=== PATIENT | female | born 1990 | race Caucasian/White ===

== ENCOUNTER 2018-05-28 11:00 | Emergency (ER) | payer MEDICAID ==
[2018-05-28 11:03] VITALS: BMI 29.2
--- NOTE | 2018-05-28 11:40 | ED PDOC ---
HPI: Female Pain Time Seen by Provider: 05/28/18 11:06 Chief Complaint (Nursing): Female Genitourinary History Per: Patient Additional Complaint(s): Pt. states 2 weeks ago she developed vaginal irritation along with a foul odor which lasted for a week. The following week she had her period which just ended and now she feels as if her labias are "irritated." Denies dysuria, hematuria, vaginal discharge, fever, pelvic pain, back pain, flank pain. Of note, pt. is HIV+ and is compliant with her medications. States her last viral load and CD4 count were done 3 months ago which were WNL. Past Medical History Reviewed: Historical Data, Nursing Documentation, Vital Signs Vital Signs: Last Vital Signs Temp 98.7 F 05/28/18 11:31 Pulse 87 05/28/18 11:31 Resp 16 05/28/18 11:31 BP 103/63 05/28/18 11:31 Pulse Ox 100 05/28/18 11:31 - Medical History PMH: HIV - Family History Family History: States: No Known Family Hx - Immunization History Hx Tetanus Toxoid Vaccination: No Hx Influenza Vaccination: No Hx Pneumococcal Vaccination: No - Home Medications Home Medications: Ambulatory Orders Medication Instructions Recorded Acetaminophen [Tylenol 325mg tab] 650 mg PO Q6 PRN tab 07/01/17 Atazanavir [Reyataz] 300 mg PO DAILY cap 07/01/17 Azithromycin [Zithromax] 1,200 mg PO Q7D tab 07/01/17 Calcium Acetate [Phoslo] 667 mg PO TIDCC tab 07/01/17 Emtricitabine/Tenofovir Diso 1 tab PO DAILY tab 07/01/17 [Truvada 200 MG-300 MG] Escitalopram [Lexapro] 10 mg PO DAILY tab 07/01/17 Famotidine [Pepcid] 20 mg PO DAILY tab 07/01/17 Ritonavir [Norvir] 100 mg PO DAILY tab 07/01/17 Sulfamethoxazole/Trimethoprim 1 tab PO DAILY tab 07/01/17 [Bactrim DS Tab] valACYclovir [Valtrex] 500 mg PO DAILY tab 07/01/17 Miconazole/Cleanser 17 On Wipe 1 each VG HS #1 kit 05/28/18 [Monistat 7 Combination Pack] Nitrofurantoin Macrocrystals 100 mg PO BID #14 cap 05/28/18 [Macrobid] Multivit/Folic Acid/I 1 tab PO DAILY #30 tab 05/28/18 [ Plus] - Allergies Allergies/Adverse Reactions: Allergies Allergy/AdvReac Type Severity Reaction Status Date / Time diphenhydramine Allergy Verified 06/18/17 17:50 [From Benadryl] Penicillins Allergy Verified 06/18/17 17:50 Review of Systems ROS Statement: Except As Marked, All Systems Reviewed And Found Negative Skin: Positive for: Rash (vaginal) Physical Exam - Physical Exam Appears: Positive for: Well, Non-toxic, No Acute Distress Skin: Positive for: Normal Color, Warm. Negative for: Rash Eye Exam: Positive for: Normal appearance Gastrointestinal/Abdominal: Positive for: Normal Exam, Soft. Negative for: Tenderness Pelvic Exam: Positive for: No Cerv. Motion Tender, No Masses, Blood (dry blood noted), Lesions (Erythematous scal rash on both labias extending slightly into perirectal area), Other ([place] parking enforcement technician present as weaver tire cord during entire pelvic exam). Negative for: Active Bleeding, Discharge, Mass Back: Positive for: Normal Inspection. Negative for: L CVA Tenderness, R CVA Tenderness Neurologic/Psych: Positive for: Alert, Oriented (x3). Negative for: Aphasia, Facial Droop - Laboratory Results Result Diagrams: 05/28/18 13:00 05/28/18 13:00 Urine POC: Positive - ECG O2 Sat by Pulse Oximetry: 100 - Progress ED Course And Treament: TVUS: Single live intrauterine gestation of approximately 11 weeks 1 day gestational age. heart rate 169 beats per minute. No perigestational hemorrhage identified. Pt. states she takes Tivicay and Prezcobix. Case d/w Dr. Aragon who states pt. is to continue taking her HIV medications. As per [facility] pharmacist Clotrimazole or Miconazole is safe and recommended for vulvovaginitis in as is Tivicay and Prezcobix. Pt. informed of results and advised to f/u with OBGYN for further evaluation. Advised to continue her HIV meds as prescribed but is to contact her infectious disease doctor for further evaluation. Pt. verbalized correct understanding of care and f/u. Disposition - Clinical Impression Clinical Impression: Vulvovaginitis, UTI (urinary tract infection), - Patient ED Disposition Is Patient to be Admitted: No - Disposition Referrals: [facility] [Outside] [facility] [Outside] Disposition Time: 13:35 Condition: STABLE Additional Instructions: WILFREDO RESTREPO, thank you for letting us take care of you today. Your provider was Ebony Aragon MD and you were treated for POSS GENITAL RASH. The emergency medical care you received today was directed at your acute symptoms. If you were prescribed any medication, please fill it and take as directed. It may take several days for your symptoms to resolve. Return to the Emergency Department if your symptoms worsen, do not improve, or if you have any other problems. Please contact your doctor or call one of the physicians/clinics you have been referred to that are listed on the Patient Visit Information form that is included in your discharge packet. Bring any paperwork you were given at discharge with you along with any medications you are taking to your follow up visit. Our treatment cannot replace ongoing medical care by a primary care provider outside of the emergency department. Thank you for allowing the [facility] team to be part of your care today. If you had an X-Ray or CT scan: A Radiologist will review the ED reading if any change in treatment is needed we will contact you. If you had a blood, urine, or wound culture: It will take several days for the results, if any change in treatment is needed we will contact you. If you had an STI test: It will take 48 hours for the results. Please call after 1 week if you have not heard back. Prescriptions: Miconazole/Cleanser 17 On Wipe [Monistat 7 Combination Pack] 1 each VG HS #1 kit Nitrofurantoin Macrocrystals [Macrobid] 100 mg PO BID #14 cap Multivit/Folic Acid/I [ Plus] 1 tab PO DAILY #30 tab Instructions: Urinary Tract Infection, Adult (DC), Vaginal Yeast Infection (DC) , Symptoms Forms: [employer] (Georgian) Print Language: [place]
[2018-05-28 13:07] LABS: BASO % 0.3 % (0.0-2.0); EOS % 0.1 % (0.0-4.0); HEMOGLOBIN 10.1 g/dL (12.0-16.0); LYMPH # 0.2 K/uL (1.0-4.3); MEAN CELL VOLUME 87.4 fl (81.0-99.0); MEAN CORPUSCULAR HEMOGLOBIN 30.1 pg (27.0-31.0); MEAN CORPUSCULAR HGB CONC 34.4 g/dL (33.0-37.0); MEAN PLATELET VOLUME 8.7 fl (7.2-11.7); MONO # 0.2 K/uL (0.0-0.8); NEUT # 2.2 K/uL (1.8-7.0); NEUT % 86.6 % (50.0-75.0); PLATELET COUNT 133 K/uL (130-400); RBC 3.35 Mil/uL (3.80-5.20); RED CELL DISTRIBUTION WIDTH 13.4 % (11.5-14.5); WHITE BLOOD COUNT 2.5 K/uL (4.8-10.8)
[2018-05-28 13:25] LABS: ALBUMIN 4.1 g/dL (3.5-5.0); ALT/SGPT 50 U/L (9-52); AST/SGOT 58 U/L (14-36); BLOOD UREA NITROGEN 7 mg/dl (7-17); CALCIUM 8.9 mg/dL (8.4-10.2); GFR NON-AFRICAN AMERICAN > 60
--- NOTE | 2018-05-28 13:37 | US ---
PROCEDURE: OB Pelvic Ultrasound HISTORY: vaginal bleeding COMPARISON: None available. FINDINGS: UTERUS: Single Live intrauterine gestation. CRL equivalent to 11 weeks 0 days gestatioin Gestational sac diameter equivalent to 11 weeks 2 days gestation age (Ultrasound estimated): 11 weeks 1 days Date of delivery (Ultrasound estimated) : 12/16/2018 Heart rate: 169 bpm. Sue-gestational hemorrhage: None. Yolk sac diameter 5 mm. Uterus measures 10.4 x 7.4 x 7.8 cm. No mass CERVIX: Long and closed. No cervical abnormality seen. RIGHT OVARY: Measures 2.1 x 1.6 x 2.0 cm. No mass. Normal flow. LEFT OVARY: Measures 2.8 x 2.3 x 2.4 cm. No mass. Normal flow. Physiologic left ovarian cyst, 1.8 cm. FREE FLUID: None. OTHER FINDINGS: None. IMPRESSION: Single live intrauterine gestation of approximately 11 weeks 1 day gestational age. heart rate 169 beats per minute. No perigestational hemorrhage identified.
[2018-05-28 13:51] VITALS: BP 102/60; PULSE 93; RESP 18; TEMP 98.2
[2018-05-28 13:59] LABS: SQUAMOUS EPITHIAL 9 /hpf (0-5); URINE BILIRUBIN NEGATIVE (NEGATIVE); URINE BLOOD SMALL (NEGATIVE); URINE CLARITY CLOUDY (Clear); URINE COLOR YELLOW (YELLOW); URINE GLUCOSE (UA) NEG (Normal); URINE LEUKOCYTE ESTERASE LARGE Leu/uL (Negative); URINE PROTEIN NEGATIVE (NEGATIVE); URINE UROBILINOGEN 0.2-1.0 mg/dL (0.2-1.0); WBC CLUMPS FEW /hpf
[2018-05-28 14:00] LABS: URINE BACTERIA OCC (<OCC)
[2018-05-28 14:26] LABS: BANDS 3 % (0-2); LARGE PLATELETS PRESENT; LYMPHOCYTE 7 % (20-50); MONOCYTE 4 % (0-10); NEUTROPHIL 86 % (42-75); PLATELET ESTIMATE NORMAL (NORMAL); TOTAL CELLS COUNTED 100
[2018-05-28 14:38] VITALS: O2SAT 100
== END 2018-05-28 15:15 | disposition home or self-care (01) ==
LOC: H.ER 11:00
DX: O23.591 Infection of other part of genital tract in pregnancy, first trimester (principal); Z3A.11 11 weeks gestation of pregnancy; Z88.0 Allergy status to penicillin

== ENCOUNTER 2018-07-06 17:23 | Emergency (ER) | payer MEDICAID ==
[2018-07-06 17:23] VITALS: BMI 29.2
[2018-07-06 17:51] VITALS: TEMP 100
[2018-07-06 19:03] LABS: SQUAMOUS EPITHIAL 8 /hpf (0-5); URINE BACTERIA OCC (<OCC); URINE BILIRUBIN NEGATIVE (NEGATIVE); URINE CLARITY CLOUDY (Clear); URINE COLOR AMBER (YELLOW); URINE GLUCOSE (UA) NEG (Normal); URINE PROTEIN 30 mg/dL (NEGATIVE)
[2018-07-06 19:05] LABS: URINE BLOOD SMALL (NEGATIVE); URINE LEUKOCYTE ESTERASE LARGE Leu/uL (Negative)
--- NOTE | 2018-07-06 19:56 | ED PDOC ---
HPI: Female Pain Chief Complaint (Provider): DYSURIA/VAGINAL DISCHARGE History Per: Patient (28 Y/O FEMALE HIV POSITIVE 13 WEEK HERE FOR DYSURIA/VAGINAL IRRITATION ONGOING DESPITE USE OF MEDICATION GIVEN IN ED 3 WEEKS PRIOR. DENIES ANY FEVERS/CHILLS.) <Timbo Clarke - Last Filed: 07/06/18 19:58> <Jocelyn Salas - Last Filed: 07/07/18 16:09> Time Seen by Provider: 07/06/18 18:37 Chief Complaint (Nursing): Female Genitourinary Past Medical History Reviewed: Historical Data, Nursing Documentation, Vital Signs Vital Signs: Last Vital Signs Temp 100 F H 07/06/18 17:44 Pulse 106 H 07/06/18 17:44 Resp 18 07/06/18 17:44 BP 100/66 07/06/18 17:44 Pulse Ox 100 07/06/18 17:44 - Medical History PMH: HIV - Family History Family History: States: Unknown Family Hx - Immunization History Hx Tetanus Toxoid Vaccination: No Hx Influenza Vaccination: No Hx Pneumococcal Vaccination: No <Timbo Clarke - Last Filed: 07/06/18 19:58> Vital Signs: Last Vital Signs Temp 100 F H 07/06/18 17:44 Pulse 88 07/06/18 20:45 Resp 16 07/06/18 20:45 BP 106/78 07/06/18 20:45 Pulse Ox 99 07/06/18 20:45 <Jocelyn Salas - Last Filed: 07/07/18 16:09> - Home Medications Home Medications: Ambulatory Orders Medication Instructions Recorded RX: Acetaminophen [Tylenol 325mg 650 mg PO Q6 PRN tab 07/01/17 tab] RX: Atazanavir [Reyataz] 300 mg PO DAILY cap 07/01/17 RX: Azithromycin [Zithromax] 1,200 mg PO Q7D tab 07/01/17 RX: Calcium Acetate [Phoslo] 667 mg PO TIDCC tab 07/01/17 RX: Emtricitabine/Tenofovir Diso 1 tab PO DAILY tab 07/01/17 [Truvada 200 MG-300 MG] RX: Escitalopram [Lexapro] 10 mg PO DAILY tab 07/01/17 RX: Famotidine [Pepcid] 20 mg PO DAILY tab 07/01/17 RX: Ritonavir [Norvir] 100 mg PO DAILY tab 07/01/17 RX: Sulfamethoxazole/Trimethoprim 1 tab PO DAILY tab 07/01/17 [Bactrim DS Tab] RX: valACYclovir [Valtrex] 500 mg PO DAILY tab 07/01/17 Miconazole/Cleanser 17 On Wipe 1 each VG HS #1 kit 05/28/18 [Monistat 7 Combination Pack] Nitrofurantoin Macrocrystals 100 mg PO BID #14 cap 05/28/18 [Macrobid] Multivit/Folic Acid/I 1 tab PO DAILY #30 tab 05/28/18 [ Plus] Miconazole Nitrate [Monistat 7] 45 gm VG DAILY #45 cream.appl 07/06/18 RX: Clotrimazole 1% Cream 0.5 gm TP BID #1 tube 07/06/18 [Lotrimin 1%] - Allergies Allergies/Adverse Reactions: Allergies Allergy/AdvReac Type Severity Reaction Status Date / Time diphenhydramine Allergy RASH Verified 07/06/18 17:43 [From Benadryl] Penicillins Allergy RASH Verified 07/06/18 17:43 Review of Systems ROS Statement: Except As Marked, All Systems Reviewed And Found Negative <Timbo Clarke B - Last Filed: 07/06/18 19:58> Physical Exam - Reviewed Nursing Documentation Reviewed: Yes Vital Signs Reviewed: Yes - Physical Exam Appears: Positive for: Well, Non-toxic, No Acute Distress Head Exam: Positive for: ATRAUMATIC, NORMAL INSPECTION, NORMOCEPHALIC Skin: Positive for: Normal Color, Warm, DRY Eye Exam: Positive for: EOMI, Normal appearance, PERRL ENT: Positive for: Normal ENT Inspection Neck: Positive for: Normal, Painless ROM Cardiovascular/Chest: Positive for: Regular Rate, Rhythm Respiratory: Positive for: CNT, Normal Breath Sounds Gastrointestinal/Abdominal: Positive for: Normal Exam, Soft Pelvic Exam: Positive for: Discharge (WHITISH THICK VAGINAL DISCHARGE NOTED ON CERVIX AND ALONG VAGINAL VAULT. ). Negative for: External Exam Normal (VAGINAL IRRITATION NOTED PERINEAL REGION INVOLVING RECTUM) Back: Positive for: Normal Inspection Extremity: Positive for: Normal ROM Neurologic/Psych: Positive for: Alert, Oriented <Timbo Clarke B - Last Filed: 07/06/18 19:58> - Laboratory Results Urine POC: Positive Urine dip results: Positive for: Leukocyte Esterase (TRACE). Negative for: Blood, Nitrate, Ketones, Glucose, Bilirubin - ECG O2 Sat by Pulse Oximetry: 100 - Progress ED Course And Treament: GC SENT URINE CX REVIEWED FROM 3 WEEKS PRIOR NEGATIVE <Timbo Clarke - Last Filed: 07/06/18 19:58> Disposition - Patient ED Disposition Is Patient to be Admitted: No - Disposition Disposition: Routine/Home Disposition Time: 19:56 <Timbo Clarke - Last Filed: 07/06/18 19:58> <Jocelyn Salas - Last Filed: 07/07/18 16:09> - Clinical Impression Clinical Impression: Vaginal candidiasis - Disposition [facility] Condition: FAIR Prescriptions: RX: Clotrimazole 1% Cream [Lotrimin 1%] 0.5 gm TP BID #1 tube Miconazole Nitrate [Monistat 7] 45 gm VG DAILY #45 cream.appl Instructions: Vaginal Yeast Infection (DC) - PA / GRISTMILLER / Resident Statement / has reviewed & agrees with the documentation as recorded. <Jocelyn Salas - Last Filed: 07/07/18 16:09>
[2018-07-06 21:25] VITALS: BP 106/78; PULSE 88; RESP 16; O2SAT 99
== END 2018-07-06 20:45 | disposition home or self-care (01) ==
LOC: H.ER 17:23
DX: O23.599 Infection of other part of genital tract in pregnancy, unspecified trimester (principal); Z3A.13 13 weeks gestation of pregnancy; Z88.0 Allergy status to penicillin

== ENCOUNTER 2019-02-06 12:36 | Inpatient (IN) | payer MEDICAID, OTHER ==
[2019-02-06 12:36] VITALS: BMI 29.2
[2019-02-06] MEDS ORDERED: Sodium Chloride 0.9% 1,000 ML IV STA ×2 (12:55→15:09)
[2019-02-06] MEDS ORDERED: Albuterol-Ipratrop 3 mg / 0.5 (3 ml) UD INH STA (13:12)
--- NOTE | 2019-02-06 13:18 | ED PDOC ---
HPI: General Adult Time Seen by Provider: 02/06/19 12:50 Chief Complaint (Nursing): Shortness Of Breath Chief Complaint (Provider): SOB History Per: Patient (28 Y/O FEMALE H/O HIV ON MEDICATION LAST CD4 NOTED 2017 <50 HERE WITH COUGH/SOB X 2 DAYS ASSOCIATED WITH FEVERS/CHILLS. PATIENT HAS BEEN UNDER A LOT OF STRESS LATELY SHE IS HOMELESS/STAYING AT [place] WITH 4 MONTH OLD . CURRENTLY NOT UNDER CARE OF PHYSICIAN. ADMITS SMOKING.) Past Medical History Reviewed: Historical Data, Nursing Documentation, Vital Signs Vital Signs: Last Vital Signs Temp 101.5 F H 02/06/19 12:41 Pulse 114 H 02/06/19 12:41 Resp 16 02/06/19 12:41 BP 106/67 02/06/19 12:41 Pulse Ox 97 02/06/19 12:41 Primary Care Provider: JUANJO ESPITIA - Medical History PMH: HIV - Family History Family History: States: Unknown Family Hx - Immunization History Hx Tetanus Toxoid Vaccination: No Hx Influenza Vaccination: No Hx Pneumococcal Vaccination: No - Home Medications Home Medications: Ambulatory Orders Medication Instructions Recorded Acetaminophen [Tylenol 325mg tab] 650 mg PO Q6 PRN tab 07/01/17 Atazanavir [Reyataz] 300 mg PO DAILY cap 07/01/17 Azithromycin [Zithromax] 1,200 mg PO Q7D tab 07/01/17 Calcium Acetate [Phoslo] 667 mg PO TIDCC tab 07/01/17 Emtricitabine/Tenofovir Diso 1 tab PO DAILY tab 07/01/17 [Truvada 200 MG-300 MG] Escitalopram [Lexapro] 10 mg PO DAILY tab 07/01/17 Famotidine [Pepcid] 20 mg PO DAILY tab 07/01/17 Ritonavir [Norvir] 100 mg PO DAILY tab 07/01/17 Sulfamethoxazole/Trimethoprim 1 tab PO DAILY tab 07/01/17 [Bactrim DS Tab] valACYclovir [Valtrex] 500 mg PO DAILY tab 07/01/17 Miconazole/Cleanser 17 On Wipe 1 each VG HS #1 kit 05/28/18 [Monistat 7 Combination Pack] Nitrofurantoin Macrocrystals 100 mg PO BID #14 cap 05/28/18 [Macrobid] Multivit/Folic Acid/I 1 tab PO DAILY #30 tab 05/28/18 [ Plus] Clotrimazole 1% Cream [Lotrimin 1%] 0.5 gm TP BID #1 tube 07/06/18 Miconazole Nitrate [Monistat 7] 45 gm VG DAILY #45 cream.appl 07/06/18 - Allergies Allergies/Adverse Reactions: Allergies Allergy/AdvReac Type Severity Reaction Status Date / Time diphenhydramine Allergy RASH Verified 02/06/19 12:41 [From Benadryl] Penicillins Allergy RASH Verified 02/06/19 12:41 Review of Systems ROS Statement: Except As Marked, All Systems Reviewed And Found Negative Constitutional: Positive for: Fever Respiratory: Positive for: Cough Physical Exam - Reviewed Nursing Documentation Reviewed: Yes Vital Signs Reviewed: Yes - Physical Exam Appears: Positive for: Well, Non-toxic, No Acute Distress Head Exam: Positive for: ATRAUMATIC, NORMAL INSPECTION, NORMOCEPHALIC Skin: Positive for: Normal Color, Warm, DRY Eye Exam: Positive for: EOMI, Normal appearance, PERRL ENT: Positive for: Normal ENT Inspection Neck: Positive for: Normal, Painless ROM Cardiovascular/Chest: Positive for: Regular Rate, Rhythm Respiratory: Positive for: Decreased Breath Sounds, Rhonchi. Negative for: Normal Breath Sounds Gastrointestinal/Abdominal: Positive for: Normal Exam, Soft Back: Positive for: Normal Inspection Extremity: Positive for: Normal ROM Neurological/Psych: Positive for: Awake, Alert, Normal Tone - Laboratory Results Result Diagrams: 02/06/19 13:24 02/06/19 13:24 - ECG O2 Sat by Pulse Oximetry: 97 - Progress ED Course And Treament: DUONEB X 1 DOSE NS 1 LITER 500ML PER HOUR ACETAMINOPHEN 975MG X 1 DOSE CXR: ? RLL PNEUMONIA BC X 2 LEVAQUIN 750 MG IV X 1 DOSE BACTRIM DS 1 TAB PO FOR POSSIBLE PCP VBG LACTATE 0.7 D/W DR. HESTER D/W DR CATALAN ID/ NS 2ND LITER WIDE OPEN Disposition - Clinical Impression Clinical Impression: Pneumonia, Sepsis - Patient ED Disposition Is Patient to be Admitted: Yes - Disposition Disposition Time: 14:52 Condition: FAIR - Pt Status Changed To: Hospital Disposition Of: Inpatient - Admit Certification Admit to Inpatient:: After my assessment, the patient will require h ospitalization for at least two midnights. This is because of the severity of symptoms shown, intensity of services needed, and/or the medical risk in this patient being treated as an outpatient.
[2019-02-06 13:29] LABS: BASO % 0.3 % (0.0-2.0); EOS % 0.1 % (0.0-4.0); HEMOGLOBIN 9.6 g/dL (12.0-16.0); LYMPH # 0.3 K/uL (1.0-4.3); LYMPH % 5.5 % (20.0-40.0); MEAN CORPUSCULAR HEMOGLOBIN 28.5 pg (27.0-31.0); MEAN CORPUSCULAR HGB CONC 32.4 g/dL (33.0-37.0); MEAN PLATELET VOLUME 8.3 fl (7.2-11.7); MONO # 0.3 K/uL (0.0-0.8); MONO % 5.7 % (0.0-10.0); NEUT # 4.5 K/uL (1.8-7.0); NEUT % 88.4 % (50.0-75.0); NRBC % 0.1 % (0.0-0.0); PLATELET COUNT 328 K/uL (130-400); RBC 3.38 Mil/uL (3.80-5.20); RED CELL DISTRIBUTION WIDTH 15.3 % (11.5-14.5); WHITE BLOOD COUNT 5.1 K/uL (4.8-10.8)
[2019-02-06] MEDS ORDERED: Albuterol-Ipratrop 3 mg / 0.5 (3 ml) UD ONE (13:30)
[2019-02-06 13:34] LABS: VENOUS BLOOD GAS BASE EXCESS 0.6 mmol/L (0.0-2.0); VENOUS BLOOD GAS PCO2 47 mmHg (40-60); VENOUS BLOOD GAS PO2 16 mm/Hg (30-55); VENOUS BLOOD PH 7.36 (7.32-7.43)
[2019-02-06 13:39] LABS: ALB/GLOB RATIO 0.7 (1.0-2.1); ALT/SGPT 45 U/L (9-52); AST/SGOT 71 U/L (14-36); BLOOD UREA NITROGEN 11 mg/dl (7-17); CALCIUM 8.3 mg/dL (8.4-10.2); GFR NON-AFRICAN AMERICAN > 60
[2019-02-06] MEDS ORDERED: Lidocaine 2% w Epi 1:100,000 Inj IJ ONE (14:06)
[2019-02-06] MEDS ORDERED: Lidocaine/Prilocaine CREAM 5GM TP ONE (14:06)
[2019-02-06] MEDS ORDERED: levoFLOXacin 750 mg in D5W 150 ML BAG IVPB STA (14:15)
[2019-02-06 14:20] LABS: BANDS 1 % (0-2); LYMPHOCYTE 6 % (20-50); MONOCYTE 4 % (0-10); NEUTROPHIL 89 % (42-75); TOTAL CELLS COUNTED 100
[2019-02-06 14:21] LABS: ANISOCYTOSIS SLIGHT; HYPOCHROMIC SLIGHT; LARGE PLATELETS PRESENT; PLATELET ESTIMATE NORMAL (NORMAL)
[2019-02-06] MEDS ORDERED: levoFLOXacin 750 mg in D5W 750 MG/150 ML BAG IVPB ONE (14:22)
[2019-02-06] MEDS ORDERED: Tmp-Smz 800 mg-160 mg DS Tab PO STA (14:39)
--- NOTE | 2019-02-06 14:46 | RAD ---
Date of service: 02/06/2019 HISTORY: SOB comparison chest 08/11/2014 COMPARISON: TECHNIQUE: Chest PA and lateral views FINDINGS: LUNGS: Patchy infiltrate changes seen in the right lower lobe with areas of atelectasis and/or developing infiltrate in the left mid to lower lung field as well. PLEURA: No significant pleural effusion identified. No pneumothorax apparent. CARDIOVASCULAR: No aortic atherosclerotic calcification present. Normal cardiac size. No pulmonary vascular congestion. OSSEOUS STRUCTURES: No significant abnormalities. VISUALIZED UPPER ABDOMEN: Normal. OTHER FINDINGS: None. IMPRESSION: Patchy infiltrate changes seen in the right lower lobe with areas of atelectasis and/or developing infiltrate in the left mid to lower lung field as well.
[2019-02-06] MEDS ORDERED: Tmp-Smz 800 mg-160 mg DS Tab ONE (14:58)
[2019-02-06] MEDS: Tmp-Smz 800 mg-160 mg DS Tab PO SCH (21:06)
[2019-02-07 07:14] LABS: HEMOGLOBIN 8.8 g/dL (12.0-16.0); MEAN CELL VOLUME 89.6 fl (81.0-99.0); MEAN CORPUSCULAR HEMOGLOBIN 29.1 pg (27.0-31.0); MEAN CORPUSCULAR HGB CONC 32.5 g/dL (33.0-37.0); RBC 3.03 Mil/uL (3.80-5.20); RED CELL DISTRIBUTION WIDTH 14.9 % (11.5-14.5); WHITE BLOOD COUNT 2.5 K/uL (4.8-10.8)
[2019-02-07 07:29] LABS: BLOOD UREA NITROGEN 8 mg/dl (7-17); CALCIUM 8.4 mg/dL (8.4-10.2); GFR NON-AFRICAN AMERICAN > 60; HDL CHOLESTEROL 19 MG/DL (30-70)
[2019-02-07 07:39] LABS: LDL CHOLESTEROL 39 mg/dL (0-129)
[2019-02-07] MEDS: levoFLOXacin 750 mg in D5W 750 MG/150 ML BAG IVPB SCH (08:30)
[2019-02-07] MEDS: Emtricitabine-Tenofovir 200 mg-300 mg Tab PO SCH (08:30)
[2019-02-07] MEDS: Tmp-Smz 800 mg-160 mg DS Tab PO SCH ×2 (08:31→21:22)
[2019-02-07] MEDS: Enoxaparin 40 mg Syringe SC SCH (08:31)
[2019-02-07] MEDS ORDERED: levoFLOXacin 750 mg in D5W 150 ML BAG IVPB SCH (09:00)
--- NOTE | 2019-02-07 10:39 | CARD ---
APPROVED REPORT Date of service: 02/06/2019 EKG Measurement Heart [id number] <Conclusion> Sinus tachycardia Otherwise normal ECG
--- NOTE | 2019-02-07 14:11 | CP.PCM.CON ---
History of Present Illness - History of Present Illness History of Present Illness: 28 yo female with Hx HIV/AIDS Last CD4 reportedly <50 admitted with fever chills cough and being treated fro Pneumonia Patient followed at [facility]- doesnt know names of meds Empiric IV rx started await CD4 may need MAC prophylaxis poor prognosis Review of Systems - Review of Systems All systems: reviewed and no additional remarkable complaints except - Constitutional Constitutional: As Per HPI - EENT Eyes: absent: As Per HPI, Blind Spots, Blurred Vision, Change in Vision, Decreased Night Vision, Diplopia, Discharge, Dry Eye, Exophthalmos, Floaters, Irritation, Itchy Eyes, Loss of Peripheral Vision, Pain, Photophobia, Requires Corrective Lenses, Sees Flashes, Spots in Vision, Tunnel Vision, Other Visual Disturbances, Loss of Vision, Other Ears: absent: As Per HPI, Decreased Hearing, Ear Discharge, Ear Pain, Tinnitus, Abnormal Hearing, Disequilibrium, Dizziness, Other Nose/Mouth/Throat: absent: As Per HPI, Epistaxis, Nasal Congestion, Nasal Discharge, Nasal Obstruction, Nasal Trauma, Nose Pain, Post Nasal Drip, Sinus Pain, Sinus Pressure, Bleeding Gums, Change in Voice, Dental Pain, Dry Mouth, Dysphagia, Halitosis, Hoarsness, Lip Swelling, Mouth Lesions, Mouth Pain, Odynophagia, Sore Throat, Throat Swelling, Tongue Swelling, Facial Pain, Neck Pain, Neck Mass, Other - Breasts Breasts: absent: As Per HPI, Change in Shape, Mass, Pain, Nipple Discharge, Nipple Inversion, Skin Changes, Swelling, Other - Cardiovascular Cardiovascular: absent: As Per HPI, Acrocyanosis, Chest Pain, Chest Pain at Rest, Chest Pain with Activity, Claudication, Diaphoresis, Dyspnea, Dyspnea on Exertion, Edema, Irregular Heart Rhythm, Pain Radiating to Arm/Neck/Jaw, Leg Edema, Leg Ulcers, Lightheadedness, Orthopnea, Palpitations, Paroxysmal Nocturnal Dyspnea, Pedal Edema, Radiating Pain, Rapid Heart Rate, Slow Heart Rate, Syncope, Other - Respiratory Respiratory: As Per HPI - Gastrointestinal Gastrointestinal: absent: As Per HPI, Abdominal Pain, Belching, Bloating, Change in Bowel Habits, Change in Stool Character, Coffee Ground Emesis, Constipation, Cramping, Diarrhea, Dyspepsia, Dysphagia, Early Satiety, Excessive Flatus, Fecal Incontinence, Heartburn, Hematemesis, Hematochezia, Loose Stools, Melena, Nausea, Odynophagia, Temesmus, Vomiting, Other - Genitourinary Genitourinary: absent: As Per HPI, Change in Urinary Stream, Difficulty Urinating, Dysuria, Flank Pain, Hematuria, Pyuria, Nocturia, Urinary Incont inence, Urinary Frequency, Urinary Hesitance, Urinary Urgency, Voiding Freq/Small Amts, Freq UTI, Hx Renal/Bladder Calculi, Hx /Renal Surgery, Bladder Distension, Other - Reproductive: Female Reproductive:Female: absent: As Per HPI, Amenorrhea, Amenorrhea/ Control, Currently Menstual, Cycle <21 Days, Cycle >35 Days, Cycle Variable, Menses 1-7 Days, Menses >/= 8 Days, Menses Variable, Cycle > 4 Weeks Between, No Menses for 6 Months, Heavy Menses, Light Menses, Normal Menses, Spotting Between Cycles, S/P Hysterectomy, Menopausal, Post Menopausal, Premenarche, Abnormal Vaginal Bleeding, Dysmenorrhea, Dyspareunia, Genital Lesions, Genital Pruritis, Pelvic Pain, Prolapse Symptoms, Sexual Dysfunction, Vaginal Discharge, Vaginal Dryness, Vaginal Odor, Vaginal Pruritis, Other - Menstruation Menstruation: absent: As Per HPI, Amenorrhea, Amenorrhea/ Control, Currently Menstual, Cycle <21 Days, Cycle >35 Days, Cycle Variable, Menses 1-7 Days, Menses >/= 8 Days, Menses Variable, Cycle > 4 Weeks Between, No Menses for 6 Months, Heavy Menses, Light Menses, Normal Menses, Spotting Between Cycles, S/P Hysterectomy, Menopausal, Post Menopausal, Premenarche, Abnormal Vaginal Bleeding, Dysmenorrhea, Other - Musculoskeletal Musculoskeletal: absent: As Per HPI, Abnormal Gait, Arthralgias, Atrophy, Back Pain, Deformity, Joint Swelling, Limited Range of Motion, Loss of Height, Muscle Cramps, Muscle Weakness, Myalgias, Neck Pain, Numbness, Radiating Pain into Limb, Stiffness, Tingling, Other - Integumentary Integumentary: absent: As Per HPI, Acne, Alopecia, Bleeding Lesions, Change in Hair, Change in Nails, Change in Pigmentation, Changing Lesions, Dry Skin, Erythema, Furuncle, Hirsutism, Lesions, New Lesions, Non-Healing Lesions, Photosensitivity, Pruritus, Rash, Skin Pain, Skin Ulcer, Sores, Striae, Swelling, Unusual Bruising, Wounds, Jaundice, Other - Neurological Neurological: absent: As Per HPI, Abnormal Gait, Abnormal Hearing, Abnormal Movements, Abnormal Speech, Behavioral Changes, Burning Sensations, Confusion, Convulsions, Disequilibrium, Dizziness, Numbness, Focal Weakness, Frequent Falls, Headaches, Lack of Coordination, Loss of Vision, Memory Loss, Paresthesias, Radicular Pain, Restless Legs, Sensory Deficit, Syncope, Tingling, Tremor, Vertigo, Weakness, Other Visual Disturbances, Other - Psychiatric Psychiatric: absent: As Per HPI, Abnormal Sleep Pattern, Anhedonia, Anxiety, Auditory Hallucinations, Behavioral Changes, Change in Appetite, Change in Libido, Confusion, Depression, Difficulty Concentrating, Hallucinations, Homicidal Ideation, Hopelessness, Irritability, Memory Loss, Mood Swings, Panic Attacks, Paranoia, Suicidal Ideation, Visual Hallucinations, Tactile Hallucinations, Other - Endocrine Endocrine: absent: As Per HPI, Change in Body Appearance, Change in Libido, Cold Intolorance, Deepening of Voice, Excessive Sweating, Fatigue, Flushing, Heat Intolorance, Increase in Ring/Shoe/Hat Size, Palpitations, Polydipsia, Polyphagia, Polyuria, Other - Hematologic/Lymphatic Hematologic: absent: As Per HPI, Easy Bleeding, Easy Bruising, Lymphadenopathy, Other Past Patient History - Past Medical History & Family History Past Medical History?: Yes - Past Social History Smoking Status: Heavy Smoker > 10 Cigarettes Daily - CARDIAC Hx Cardiac Disorders: No - PULMONARY Hx Pneumonia: Yes - NEUROLOGICAL Hx Neurological Disorder: No - RENAL Hx Chronic Kidney Disease: No - ENDOCRINE/METABOLIC Hx Endocrine Disorders: No - HEMATOLOGICAL/ONCOLOGICAL Hx Blood Disorders: Yes (HIV) Hx AIDS: No Hx Human Immunodeficiency Virus (HIV): Yes - INTEGUMENTARY Hx Dermatological Problems: No - MUSCULOSKELETAL/RHEUMATOLOGICAL Hx Musculoskeletal Disorders: No Hx Falls: No - GASTROINTESTINAL Hx Gastrointestinal Disorders: No - GENITOURINARY/GYNECOLOGICAL Hx Genitourinary Disorders: No - PSYCHIATRIC Hx Substance Use: No Other/Comment: IV DRUG USE. - SURGICAL HISTORY Hx Surgeries: No - ANESTHESIA Hx Anesthesia: Yes Hx Anesthesia Reactions: No Has any member of the family had a problem w/ anesthesia?: No Meds Allergies/Adverse Reactions: Allergies Allergy/AdvReac Type Severity Reaction Status Date / Time diphenhydramine Allergy RASH Verified 02/06/19 12:41 [From Benadryl] Penicillins Allergy RASH Verified 02/06/19 12:41 - Medications Medications: Current Medications Acetaminophen (Tylenol 325mg Tab) 650 mg PO Q6 PRN PRN Reason: Fever >100.4 F Last Admin: 02/07/19 00:33 Dose: 650 mg Atazanavir (Reyataz) 300 mg PO DAILY [facility]; Protocol Last Admin: 02/07/19 08:30 Dose: Not Given Emtricitabine/Tenofovir (Truvada 200 Mg-300 Mg) 1 tab PO DAILY [facility]; Protocol Last Admin: 02/07/19 08:30 Dose: Not Given Enoxaparin Sodium (Lovenox) 40 mg SC DAILY [facility]; Protocol Last Admin: 02/07/19 08:31 Dose: 40 mg Levofloxacin/Dextrose (Levaquin 750mg) 750 mg in 150 mls @ 75 mls/hr IVPB DAILY [facility] Last Admin: 02/07/19 08:30 Dose: 75 mls/hr Ondansetron HCl (Zofran Inj) 4 mg IVP Q8 PRN PRN Reason: Nausea/Vomiting Ritonavir (Norvir) 100 mg PO DAILY [facility]; Protocol Last Admin: 02/07/19 11:59 Dose: 100 mg Trimethoprim/Sulfamethoxazole (Bactrim Ds Tab) 1 tab PO Q12 [facility]; Protocol Last Admin: 02/07/19 08:31 Dose: 1 tab Physical Exam - Constitutional Appears: No Acute Distress, Cachectic, Chronically Ill - Head Exam Head Exam: ATRAUMATIC, NORMAL INSPECTION, NORMOCEPHALIC - Eye Exam Eye Exam: EOMI, Normal appearance, PERRL Pupil Exam: NORMAL ACCOMODATION, PERRL - ENT Exam ENT Exam: Mucous Membranes Moist, Normal Exam - Neck Exam Neck exam: Positive for: Normal Inspection - Respiratory Exam Respiratory Exam: Clear to Auscultation Bilateral, NORMAL BREATHING PATTERN - Cardiovascular Exam Cardiovascular Exam: REGULAR RHYTHM - GI/Abdominal Exam GI & Abdominal Exam: Normal Bowel Sounds, Soft. absent: Tenderness - Rectal Exam Rectal Exam: Deferred - Exam Exam: NORMAL INSPECTION - Extremities Exam Extremities exam: Positive for: normal inspection - Back Exam Back exam: NORMAL INSPECTION - Neurological Exam Neurological exam: Alert, CN II-XII Intact, Normal Gait, Oriented x3, Reflexes Normal - Psychiatric Exam Psychiatric exam: Normal Affect, Normal Mood - Skin Skin Exam: Dry, Intact, Normal Color, Warm Results - Vital Signs Recent Vital Signs: Last Vital Signs Temp 98.1 F 02/07/19 08:10 Pulse 81 02/07/19 08:10 Resp 20 02/07/19 08:10 BP 96/60 L 02/07/19 08:10 Pulse Ox 96 02/07/19 08:10 - Labs Result Diagrams: 02/07/19 06:00 02/07/19 06:00 Labs: Laboratory Results - last 24 hr 02/06/19 02/07/19 02/07/19 13:24 06:00 06:00 WBC 2.5 L D RBC 3.03 L Hgb 8.8 L Hct 27.2 L MCV 89.6 MCH 29.1 MCHC 32.5 L RDW 14.9 H Plt Count 271 Neutrophils % (Manual) 89 H Band Neutrophils % 1 Lymphocytes % (Manual) 6 L Monocytes % (Manual) 4 Platelet Estimate Normal Large Platelets Present Hypochromasia (manual) Slight Anisocytosis (manual) Slight Sodium 139 Potassium 3.9 Chloride 107 Carbon Dioxide 24 Anion Gap 12 BUN 8 Creatinine 0.6 L Est GFR ( Amer) > 60 Est GFR (Non-Af Amer) > 60 Random Glucose 94 Calcium 8.4 Triglycerides 161 H Cholesterol 83 LDL Cholesterol Direct 39 HDL Cholesterol 19 L Vitamin B12 555 TSH 3rd Generation 4.96 H Assessment & Plan (1) Pneumonia Status: Acute (2) HIV (human immunodeficiency virus infection) Status: Acute (3) HIV encephalopathy Status: Acute Priority: High - Assessment and Plan (Free Text) Assessment: 28 yo female with Hx HIV/AIDS Last CD4 reportedly <50 admitted with fever chills cough and being treated fro Pneumonia Patient followed at [facility]- doesnt know names of meds Empiric IV rx started await CD4 may need MAC prophylaxis poor prognosis
[2019-02-08 07:02] LABS: HEMOGLOBIN 9.4 g/dL (12.0-16.0); MEAN CELL VOLUME 89.3 fl (81.0-99.0); MEAN CORPUSCULAR HEMOGLOBIN 30.6 pg (27.0-31.0); MEAN CORPUSCULAR HGB CONC 34.3 g/dL (33.0-37.0); PLATELET COUNT 314 K/uL (130-400); RBC 3.06 Mil/uL (3.80-5.20); RED CELL DISTRIBUTION WIDTH 14.7 % (11.5-14.5)
[2019-02-08 07:16] LABS: WHITE BLOOD COUNT 1.6 K/uL (4.8-10.8)
[2019-02-08 07:23] LABS: ALB/GLOB RATIO 0.8 (1.0-2.1); ALBUMIN 3.6 g/dL (3.5-5.0); ALT/SGPT 39 U/L (9-52); AST/SGOT 70 U/L (14-36); BLOOD UREA NITROGEN 8 mg/dl (7-17); CALCIUM 8.8 mg/dL (8.4-10.2); GFR NON-AFRICAN AMERICAN > 60
[2019-02-08] MEDS: levoFLOXacin 750 mg in D5W 750 MG/150 ML BAG IVPB SCH (09:19)
[2019-02-08] MEDS: Enoxaparin 40 mg Syringe SC SCH (09:20)
[2019-02-08] MEDS: Tmp-Smz 800 mg-160 mg DS Tab PO SCH (09:21)
[2019-02-08] MEDS: Levothyroxine 25 MCG TAB PO SCH (09:21)
[2019-02-08] MEDS: Emtricitabine-Tenofovir 200 mg-300 mg Tab PO SCH (09:28)
--- NOTE | 2019-02-08 10:37 | PN ---
DATE: 02/08/2019 SUBJECTIVE: The patient seen and examined. Interim events noted. Consults noted and appreciated. Infectious Disease followup and interventions noted and appreciated. The patient remains in regular medical floor, awake, responsive, feels okay. Denies any specific complaint. No specific issue reported by nursing staff. PHYSICAL EXAMINATION: GENERAL: The patient is in no acute distress. VITAL SIGNS: Stable. HEART: S1, S2, normal, regular. LUNGS: Good bilateral air exchange. ABDOMEN: Soft, nontender. EXTREMITIES: No edema, no calf swelling, no tenderness, no acute ischemia. CENTRAL NERVOUS SYSTEM: Essentially unchanged. DIAGNOSTIC DATA: Available diagnostic data reviewed. ASSESSMENT: Infectious Disease consult and intervention noted and appreciated. The patient is hemodynamically stable. Long-term prognosis looks poor. PLAN: As ordered. Elder Bledsoe MD
[2019-02-08] MEDS: Sodium Chloride 0.9% 1,000 ML IV SCH ×2 (11:30→21:30)
--- NOTE | 2019-02-08 12:06 | HP ---
DATE OF ADMISSION: 02/06/2019. CHIEF COMPLAINT: Difficulty breathing. HISTORY OF PRESENT ILLNESS: This is a 28-year-old female, known case of HIV medication, on some medication but noncompliant with medical followup with last CD4 count less than 50, who was having cough and shortness of breath, feeling generalized weakness, malaise, fatigue, tired, fever, and chills. So, the patient was brought to emergency room and was admitted for further management. REVIEW OF SYSTEMS: Positive for cough, fever, chills, shortness of breath. Review of systems otherwise is also positive for generalized malaise, weakness, fatigue, and tiredness. Review of systems otherwise is negative for headache, dizziness, syncope, loss of consciousness, nausea, vomiting, diarrhea, constipation, and any new joint or extremity pain. Review of system of all other organ system is unremarkable. PAST MEDICAL HISTORY: Significant for HIV positive. PAST SURGICAL HISTORY: Unremarkable. PERSONAL HISTORY: The patient is currently nonsmoker, nondrinker, no substance abuse. MEDICATIONS: The patient is on multiple medications, although compliance is questionable. Medication included Tylenol, Reyataz, Zithromax, PhosLo, tenofovir, Lexapro, Pepcid, Norvir, Bactrim, Valtrex, Monistat, Microvit, vitamin, and clotrimazole. ALLERGIES: THE PATIENT IS ALLERGIC TO BENADRYL AND PENICILLIN. FAMILY HISTORY: Noncontributory. PHYSICAL EXAMINATION: GENERAL: Fairly-built, fairly-nourished 28-year-old female, in no acute distress. VITAL SIGNS: Temperature 100.6, pulse 95, respirations 20, blood pressure 94/61. No orthostatic changes. HEENT: Pupils reacting to light. No JVD. No thyromegaly. No lymphadenopathy. No nystagmus. Normocephalic and atraumatic skull. The patient is wearing glasses. HEART: S1 and S2. Normal and regular. No significant murmur, gallop or rub is heard. LUNGS: Shows good bilateral air exchange. No rales or rhonchi. ABDOMEN: Soft, nontender. No organomegaly. No fluid. Bowel sounds are present and normal. EXTREMITIES: No edema. No calf swelling, no tenderness, no acute ischemia. CENTRAL NERVOUS SYSTEM: Essentially unchanged and there is no sign of any acute gross focal motor or sensory neurological deficit. DIAGNOSTIC DATA: Available diagnostic data reviewed. WBC 5.1, hemoglobin 9.6, hematocrit 29.7, platelets 328. Sodium 137, potassium 3.8, chloride 103, bicarb 24, BUN 11, creatinine 0.5. AST 71, ALT 45. Chest x-ray shows patchy infiltrate in right lower lobe with atelectasis and infiltrates in the right mid to lower lobe. ADMITTING IMPRESSION: Right lower lobe pneumonia, human immunodeficiency virus positive. PLAN: As ordered. Case and plan discussed with the patient. Elder Bledsoe MD
[2019-02-08] MEDS: Multi Vitamins 15 mL UD Oral Solution PO SCH (12:14)
[2019-02-08 12:27] LABS: BANDS 2 % (0-2); EOSINOPHIL 2 % (0-7); LYMPHOCYTE 18 % (20-50); MONOCYTE 12 % (0-10); NEUTROPHIL 66 % (42-75); PLATELET ESTIMATE NORMAL (NORMAL); TOTAL CELLS COUNTED 50
[2019-02-08 12:28] LABS: ANISOCYTOSIS MODERATE; LARGE PLATELETS PRESENT; MICROCYTOSIS SLIGHT; OVALOCYTES SLIGHT; POIKILOCYTOSIS SLIGHT
[2019-02-08 13:07] LABS: IRON 72 ug/dL (37-170)
[2019-02-08 13:17] LABS: % IRON SATURATION 27 % (20-55); TOTAL IRON BINDING CAPACITY 269 ug/dL (250-450)
--- NOTE | 2019-02-08 22:40 | CP.PCM.PN ---
Subjective - Date & Time of Evaluation Date of Evaluation: 02/08/19 Time of Evaluation: 08:00 - Subjective Subjective: less cough less sob no fever HAART rx adjusted Objective - Vital Signs/Intake and Output Vital Signs (last 24 hours): Temp Pulse Resp BP Pulse Ox 98 F 80 20 100/62 98 02/08/19 15:53 02/08/19 15:53 02/08/19 15:53 02/08/19 15:53 02/08/19 15:53 - Medications Medications: Current Medications Acetaminophen (Tylenol 325mg Tab) 650 mg PO Q6 PRN PRN Reason: Fever >100.4 F Last Admin: 02/07/19 00:33 Dose: 650 mg Darunavir (Prezista) 600 mg PO BID [facility]; Protocol Last Admin: 02/08/19 17:22 Dose: 600 mg Dolutegravir Sodium (Tivicay) 50 mg PO BID [facility]; Protocol Last Admin: 02/08/19 17:22 Dose: 50 mg Enoxaparin Sodium (Lovenox) 40 mg SC DAILY [facility]; Protocol Last Admin: 02/08/19 09:20 Dose: 40 mg Folic Acid (Folic Acid) 1 mg PO DAILY [facility] Last Admin: 02/08/19 12:16 Dose: 1 mg Levofloxacin/Dextrose (Levaquin 750mg) 750 mg in 150 mls @ 75 mls/hr IVPB DAILY [facility] Last Admin: 02/08/19 09:19 Dose: 75 mls/hr Sodium Chloride (Sodium Chloride 0.9%) 1,000 mls @ 100 mls/hr IV .Q10H [facility] Stop: 02/09/19 11:19 Last Admin: 02/08/19 11:30 Dose: 100 mls/hr Levothyroxine Sodium (Synthroid) 25 mcg PO DAILY@0630 [facility] Last Admin: 02/08/19 09:21 Dose: 25 mcg Multivitamins/Vitamin C (Multi-Delyn Liquid) 15 ml PO DAILY [facility] Last Admin: 02/08/19 12:14 Dose: 15 ml Ondansetron HCl (Zofran Inj) 4 mg IVP Q8 PRN PRN Reason: Nausea/Vomiting Last Admin: 02/07/19 14:10 Dose: 4 mg Ritonavir (Norvir) 100 mg PO DAILY [facility]; Protocol Last Admin: 02/08/19 09:21 Dose: 100 mg - Labs Labs: 02/08/19 05:55 02/08/19 05:55 - Constitutional Appears: Non-toxic, Cachectic, Chronically Ill - Head Exam Head Exam: ATRAUMATIC, NORMAL INSPECTION, NORMOCEPHALIC - Eye Exam Eye Exam: EOMI, Normal appearance, PERRL Pupil Exam: NORMAL ACCOMODATION, PERRL - ENT Exam ENT Exam: Mucous Membranes Moist, Normal Exam - Neck Exam Neck Exam: Full ROM, Normal Inspection. absent: Lymphadenopathy - Respiratory Exam Respiratory Exam: Clear to Ausculation Bilateral, NORMAL BREATHING PATTERN - Cardiovascular Exam Cardiovascular Exam: REGULAR RHYTHM, +S1, +S2. absent: Murmur - GI/Abdominal Exam GI & Abdominal Exam: Soft, Normal Bowel Sounds. absent: Tenderness - Rectal Exam Rectal Exam: Deferred - Extremities Exam Extremities Exam: Full ROM, Normal Capillary Refill, Normal Inspection. absent: Joint Swelling, Pedal Edema - Back Exam Back Exam: NORMAL INSPECTION - Neurological Exam Neurological Exam: Alert, Awake, CN II-XII Intact, Normal Gait, Oriented x3 - Psychiatric Exam Psychiatric exam: Depressed - Skin Skin Exam: Dry, Intact Assessment and Plan (1) Pneumonia Status: Acute (2) HIV (human immunodeficiency virus infection) Status: Acute (3) HIV encephalopathy Status: Acute - Assessment and Plan (Free Text) Assessment: improving on Levaquin HAART rx adjusted Bactrim d/c'd in view of neutropenia
[2019-02-09] MEDS: Sodium Chloride 0.9% 1,000 ML IV SCH ×5 (02:56→12:45)
[2019-02-09 05:59] LABS: HEMOGLOBIN 8.7 g/dL (12.0-16.0); MEAN CELL VOLUME 87.7 fl (81.0-99.0); MEAN CORPUSCULAR HEMOGLOBIN 29.6 pg (27.0-31.0); MEAN CORPUSCULAR HGB CONC 33.7 g/dL (33.0-37.0); RBC 2.95 Mil/uL (3.80-5.20); RED CELL DISTRIBUTION WIDTH 14.7 % (11.5-14.5)
[2019-02-09 06:06] LABS: WHITE BLOOD COUNT 1.9 K/uL (4.8-10.8)
[2019-02-09] MEDS: Levothyroxine 25 MCG TAB PO SCH (06:16)
[2019-02-09 06:20] LABS: ALB/GLOB RATIO 0.7 (1.0-2.1); ALBUMIN 3.4 g/dL (3.5-5.0); ALT/SGPT 41 U/L (9-52); AST/SGOT 65 U/L (14-36); BLOOD UREA NITROGEN 9 mg/dl (7-17); CALCIUM 8.5 mg/dL (8.4-10.2); GFR NON-AFRICAN AMERICAN > 60
--- NOTE | 2019-02-09 07:18 | CP.PCM.PN ---
<Venus Clarke - Last Filed: 02/09/19 08:37> Subjective - Date & Time of Evaluation Date of Evaluation: 02/09/19 Time of Evaluation: 07:16 - Subjective Subjective: Patient seen and examined this morning at bedside with Dr. Bledsoe. Patient is 28 y/o HIV positive F who is admitted for pneumonia. Patient was started back on all the HAART medications recently. Patient is c/o dizziness and nausea this morning/ no fever, denies any chest pain, SOB, abdominal pain or dysuria. Objective - Vital Signs/Intake and Output Vital Signs (last 24 hours): Temp Pulse Resp BP Pulse Ox 98.6 F 90 18 94/59 L 99 02/08/19 23:38 02/08/19 23:38 02/08/19 23:38 02/08/19 23:38 02/08/19 23:38 - Medications Medications: Current Medications Acetaminophen (Tylenol 325mg Tab) 650 mg PO Q6 PRN PRN Reason: Fever >100.4 F Last Admin: 02/07/19 00:33 Dose: 650 mg Darunavir (Prezista) 600 mg PO BID [facility]; Protocol Last Admin: 02/08/19 17:22 Dose: 600 mg Dolutegravir Sodium (Tivicay) 50 mg PO BID [facility]; Protocol Last Admin: 02/08/19 17:22 Dose: 50 mg Enoxaparin Sodium (Lovenox) 40 mg SC DAILY [facility]; Protocol Last Admin: 02/08/19 09:20 Dose: 40 mg Folic Acid (Folic Acid) 1 mg PO DAILY [facility] Last Admin: 02/08/19 12:16 Dose: 1 mg Levofloxacin/Dextrose (Levaquin 750mg) 750 mg in 150 mls @ 75 mls/hr IVPB DAILY [facility] Last Admin: 02/08/19 09:19 Dose: 75 mls/hr Sodium Chloride (Sodium Chloride 0.9%) 1,000 mls @ 100 mls/hr IV .Q10H [facility] Stop: 02/09/19 11:19 Last Admin: 02/09/19 02:56 Dose: 100 mls/hr Sodium Chloride (Sodium Chloride 0.9%) 1,000 mls @ 999 mls/hr IV .Q1H1M [facility] Stop: 02/10/19 07:15 Levothyroxine Sodium (Synthroid) 25 mcg PO DAILY@0630 [facility] Last Admin: 02/09/19 06:16 Dose: 25 mcg Multivitamins/Vitamin C (Multi-Delyn Liquid) 15 ml PO DAILY [facility] Last Admin: 02/08/19 12:14 Dose: 15 ml Ondansetron HCl (Zofran Inj) 4 mg IVP Q8 PRN PRN Reason: Nausea/Vomiting Last Admin: 02/09/19 04:10 Dose: 4 mg Ritonavir (Norvir) 100 mg PO DAILY [facility]; Protocol Last Admin: 02/08/19 09:21 Dose: 100 mg - Labs Labs: 02/09/19 05:18 02/09/19 05:18 - Constitutional Appears: No Acute Distress, Cachectic - Head Exam Head Exam: NORMAL INSPECTION - Eye Exam Eye Exam: Normal appearance Pupil Exam: NORMAL ACCOMODATION - ENT Exam ENT Exam: Mucous Membranes Moist - Neck Exam Neck Exam: Normal Inspection - Respiratory Exam Respiratory Exam: Clear to Ausculation Bilateral, NORMAL BREATHING PATTERN. absent: Decreased Breath Sounds - Cardiovascular Exam Cardiovascular Exam: REGULAR RHYTHM, +S1, +S2 - GI/Abdominal Exam GI & Abdominal Exam: Soft, Normal Bowel Sounds. absent: Tenderness - Back Exam Back Exam: NORMAL INSPECTION. absent: CVA tenderness (L), CVA tenderness (R) - Neurological Exam Neurological Exam: Alert, Awake, CN II-XII Intact, Oriented x3 Neuro motor strength exam: Left Upper Extremity: 5, Right Upper Extremity: 5, Left Lower Extremity: 5, Right Lower Extremity: 5 - Psychiatric Exam Psychiatric exam: Normal Affect - Skin Skin Exam: Normal Color Assessment and Plan - Assessment and Plan (Free Text) Assessment: A/P: Patient is 28 y/o HIV positive F who is admitted for pneumonia/sepsis. Patient is non-compliant with HAART medications and follow ups, just started on HAART medications in this visit. - Sepsis secondary to pneumonia: Sepsis resolved, ID recommendations appreciated, C/w Levofloxacin and IVF for now, f/u with CD4 counts - Community acquired pneumonia/CAP: Acute, Improved symptoms, C/w Levofloxacin, f/u Bcx: NGPD - HIV/AIDS: F/u CD4 count, Continue HAART as per ID, might need PPX for opportunistic infections - Leukopenia and Chronic Anemia: likely due to chronic conditions/HIV/AIDS - Hypothyroid: Chronic, C/w Levothyroxine 25 mcg po daily for now, f/u TSH/FT4/FT3 - DVT PPX: Lovenox 40mg SC daily Case discussed with Dr. Bledsoe, agrees with plan <Elder Bledsoe - Last Filed: 02/10/19 11:58> Objective - Vital Signs/Intake and Output Vital Signs (last 24 hours): Temp Pulse Resp BP Pulse Ox 97.6 F 77 20 101/66 99 02/10/19 07:42 02/10/19 07:42 02/10/19 07:42 02/10/19 07:42 02/10/19 07:42 - Medications Medications: Current Medications Acetaminophen (Tylenol 325mg Tab) 650 mg PO Q6 PRN PRN Reason: Fever >100.4 F Last Admin: 02/07/19 00:33 Dose: 650 mg Darunavir (Prezista) 600 mg PO BID [facility]; Protocol Last Admin: 02/10/19 08:39 Dose: 600 mg Dolutegravir Sodium (Tivicay) 50 mg PO BID [facility]; Protocol Last Admin: 02/10/19 08:38 Dose: 50 mg Folic Acid (Folic Acid) 1 mg PO DAILY [facility] Last Admin: 02/10/19 08:39 Dose: 1 mg Levofloxacin/Dextrose (Levaquin 750mg) 750 mg in 150 mls @ 75 mls/hr IVPB DAILY [facility] Last Admin: 02/10/19 08:43 Dose: 75 mls/hr Levothyroxine Sodium (Synthroid) 25 mcg PO DAILY@0630 [facility] Last Admin: 02/10/19 06:03 Dose: 25 mcg Multivitamins/Vitamin C (Multi-Delyn Liquid) 15 ml PO DAILY [facility] Last Admin: 02/10/19 08:39 Dose: 15 ml Ondansetron HCl (Zofran Inj) 4 mg IVP Q8 PRN PRN Reason: Nausea/Vomiting Last Admin: 02/09/19 04:10 Dose: 4 mg Ritonavir (Norvir) 100 mg PO DAILY [facility]; Protocol Last Admin: 02/10/19 08:39 Dose: 100 mg - Labs Labs: 02/10/19 06:25 02/10/19 06:25 Assessment and Plan - Assessment and Plan (Free Text) Assessment: Patient was personally seen and examined by me in rounds with residents. Available labs and diagnostic data reviewed. Case, Patient's condition and management plan discussed with residents in rounds. Agree with resident's progress note. Plan: As ordered.
[2019-02-09] MEDS: Enoxaparin 40 mg Syringe SC SCH (08:22)
[2019-02-09] MEDS: Multi Vitamins 15 mL UD Oral Solution PO SCH (08:24)
[2019-02-09] MEDS: levoFLOXacin 750 mg in D5W 750 MG/150 ML BAG IVPB SCH (09:49)
--- NOTE | 2019-02-09 12:43 | RAD ---
Date of service: 02/09/2019 PROCEDURE: CHEST RADIOGRAPH, 1 VIEW HISTORY: pneumonia COMPARISON: 02/06/2019. FINDINGS: LUNGS: There is pulmonary hyperinflation and peribronchial cuffing with streaky opacities in the lungs. No focal consolidation. PLEURA: No pneumothorax or pleural effusion. CARDIOVASCULAR: The heart is normal in size. No aortic atherosclerotic calcifications present. OSSEOUS STRUCTURES: Within normal limits for the patient's age. VISUALIZED UPPER ABDOMEN: Normal. OTHER FINDINGS: None. IMPRESSION: Findings are most compatible with reactive small airway disease/ viral bronchitis. No lobar pneumonia.
[2019-02-09 13:11] LABS: SQUAMOUS EPITHIAL 1 /hpf (0-5); URINE BILIRUBIN NEGATIVE (NEGATIVE); URINE BLOOD MODERATE (NEGATIVE); URINE CLARITY CLEAR (Clear); URINE COLOR YELLOW (YELLOW); URINE GLUCOSE (UA) NEG (NEGATIVE); URINE LEUKOCYTE ESTERASE NEG Leu/uL (Negative); URINE PROTEIN NEGATIVE (NEGATIVE); URINE UROBILINOGEN 0.2-1.0 mg/dL (0.2-1.0)
--- NOTE | 2019-02-10 06:02 | PQF ---
PROVIDER RESPONSE TEXT: Anemia of chronic disease REVIEWER QUERY TEXT: Clarification of Clinical Diagnostic Findings Physician?s Documentation Request This Form is Not a Permanent Document in the Medical Record Pt Name: WILFREDO RESTREPO MR #: [id number] Payor: MEDICAID HMO [id number] Adm Date: 02/06/2019 2:52:00 PM Reviewer: Emily Huerta Ext. Query Date: 02/08/2019 3:08:39 PM Clarification of Clinical Diagnostic Findings [id number] By submitting this query, we are merely seeking further clarification of documentation to accurately reflect all conditions that you are monitoring, evaluating, treating or that extend the hospitalizati on or utilize additional resources of care. Please utilize your independent clinical judgment when ad dressing the question(s) below. Dear Doctor Elder Bledsoe, The patient?s Clinical Indicators include: -- Please clarify if there is an associated diagnosis to go along with the following Hematology labs: H/H:9.6/29.7->8.8/27.2->9.4/27.3 OR: Disagree OR: Other explanation of clinical findings -folic acid 1 mg PO daily, multivitamin daily PLEASE DOCUMENT ANY ADDITIONAL DIAGNOSES AND/OR SPECIFICITY IN THE PROGRESS NOTES AND/OR DISCHARGE GAY MMARY. Clinically unable to determine/unknown Disagree with the above request Need to discuss Query created by: Emily Huerta on 02/08/2019 3:08 PM Electronically signed by: Elder Bledsoe 02/10/2019 5:59 AM
[2019-02-10] MEDS: Levothyroxine 25 MCG TAB PO SCH (06:03)
[2019-02-10 06:53] LABS: BASO % 0.4 % (0.0-2.0); EOS % 0.1 % (0.0-4.0); HEMOGLOBIN 8.7 g/dL (12.0-16.0); LYMPH # 0.3 K/uL (1.0-4.3); LYMPH % 19.6 % (20.0-40.0); MEAN CELL VOLUME 91.7 fl (81.0-99.0); MEAN CORPUSCULAR HEMOGLOBIN 31.5 pg (27.0-31.0); MEAN CORPUSCULAR HGB CONC 34.4 g/dL (33.0-37.0); MONO # 0.2 K/uL (0.0-0.8); MONO % 14.3 % (0.0-10.0); NEUT # 0.8 K/uL (1.8-7.0); NEUT % 65.6 % (50.0-75.0); NRBC % 0.3 % (0.0-0.0); RBC 2.76 Mil/uL (3.80-5.20); RED CELL DISTRIBUTION WIDTH 14.9 % (11.5-14.5)
[2019-02-10 06:57] LABS: WHITE BLOOD COUNT 1.3 K/uL (4.8-10.8)
[2019-02-10 07:09] LABS: ALB/GLOB RATIO 0.7 (1.0-2.1); ALBUMIN 3.2 g/dL (3.5-5.0); ALT/SGPT 37 U/L (9-52); AST/SGOT 46 U/L (14-36); BLOOD UREA NITROGEN 11 mg/dl (7-17); CALCIUM 8.1 mg/dL (8.4-10.2); GFR NON-AFRICAN AMERICAN > 60
[2019-02-10 07:42] VITALS: BP 101/66; PULSE 77; RESP 20; TEMP 97.6; O2SAT 99
[2019-02-10] MEDS: Enoxaparin 40 mg Syringe SC SCH ×2 (08:38→08:42)
[2019-02-10] MEDS: Multi Vitamins 15 mL UD Oral Solution PO SCH (08:39)
[2019-02-10] MEDS: Sodium Chloride 0.9% 1,000 ML IV SCH (08:41)
[2019-02-10] MEDS: levoFLOXacin 750 mg in D5W 750 MG/150 ML BAG IVPB SCH (08:43)
[2019-02-10 10:21] LABS: FOLATE 19.2 ng/mL
[2019-02-10 10:43] LABS: % CD4 (T HELPER CELL) 5 Percent (30-61); % CD8 (SUPPRESSOR T CELL) 71 Percent (12-42); ABSOLUTE CD4 CELLS <20 Cells/mcL (490-1740); ABSOLUTE CD8 CELLS 159 Cells/mcL (180-1170); ABSOLUTE LYMPHOCYTES 225 Cells/mcL (850-3900); HELPER/SUPPRESSOR RATIO 0.06 Ratio (0.86-5.00)
--- NOTE | 2019-02-10 12:06 | CP.PCM.PCO ---
Assessment/Plan - Assessment/Plan Assessment (Free Text): Pt stable, ambulating in room no acute distress. Pt states she has to leave by 12noon today because she has an appt for her section 8. Labs and cxr results reviewed with Dr. Victoria. Pt cleared by Dr. Victoria for d/c home on same HIV meds as in hospital, Levaquin and Bactrim. All Rx given. Pt to f/u with [facility], ID doctor and case operator in 1 week. - Consults Consult Orders: Consultations
--- NOTE | 2019-02-10 12:18 | CP.PCM.DIS ---
Provider - Provider Date of Admission: 02/06/19 14:52 Attending physician: Elder Bledsoe MD Primary care physician: None Consults: 02/06/19 14:47 Infectious Disease Consult Stat Comment: PNEUMONIA/HIV Consulting Provider: Yvon Victoria Consulting Physician: Yvon Victoria Reason for Consult: PNEUMONIA/HIV 02/08/19 09:00 Social Work Referral Routine Comment: Patient is Homeless Physician Instructions: Reason For Exam: Patient is Homeless Time Spent in preparation of Discharge (in minutes): 40 Diagnosis - Discharge Diagnosis (1) Sepsis due to pneumonia Status: Acute (2) CAP (community acquired pneumonia) Status: Acute (3) AIDS (acquired immune deficiency syndrome) Status: Chronic (4) Chronic disease anemia Status: Chronic (5) Hypothyroid Status: Chronic Hospital Course - Lab Results Lab Results: Micro Results 02/06/19 14:00 Blood-Venous Blood Culture - Preliminary NO GROWTH AFTER 3 DAYS 02/06/19 13:00 Blood-Venous Blood Culture - Preliminary NO GROWTH AFTER 3 DAYS Most Recent Lab Values WBC 1.3 K/uL (4.8-10.8) L* 02/10/19 06:25 RBC 2.76 Mil/uL (3.80-5.20) L 02/10/19 06:25 Hgb 8.7 g/dL (12.0-16.0) L 02/10/19 06:25 Hct 25.3 % (34.0-47.0) L 02/10/19 06:25 MCV 91.7 fl (81.0-99.0) D 02/10/19 06:25 MCH 31.5 pg (27.0-31.0) H 02/10/19 06:25 MCHC 34.4 g/dL (33.0-37.0) 02/10/19 06:25 RDW 14.9 % (11.5-14.5) H 02/10/19 06:25 Plt Count 305 K/uL (130-400) 02/10/19 06:25 MPV 8.0 fl (7.2-11.7) 02/10/19 06:25 Neut % (Auto) 65.6 % (50.0-75.0) 02/10/19 06:25 Lymph % (Auto) 19.6 % (20.0-40.0) L 02/10/19 06:25 [place] % (Auto) 14.3 % (0.0-10.0) H 02/10/19 06:25 Eos % (Auto) 0.1 % (0.0-4.0) 02/10/19 06:25 Baso % (Auto) 0.4 % (0.0-2.0) 02/10/19 06:25 Neut # (Auto) 0.8 K/uL (1.8-7.0) L 02/10/19 06:25 Lymph # (Auto) 0.3 K/uL (1.0-4.3) L 02/10/19 06:25 [place] # (Auto) 0.2 K/uL (0.0-0.8) 02/10/19 06:25 Eos # (Auto) 0.0 K/uL (0.0-0.7) 02/10/19 06:25 Baso # (Auto) 0.0 K/uL (0.0-0.2) 02/10/19 06:25 Neutrophils % (Manual) 66 % (42-75) 02/08/19 05:55 Band Neutrophils % 2 % (0-2) 02/08/19 05:55 Lymphocytes % (Manual) 18 % (20-50) L 02/08/19 05:55 Monocytes % (Manual) 12 % (0-10) H 02/08/19 05:55 Eosinophils % (Manual) 2 % (0-7) 02/08/19 05:55 Platelet Estimate Normal (NORMAL) 02/08/19 05:55 Large Platelets Present 02/08/19 05:55 Hypochromasia (manual) Slight 02/06/19 13:24 Poikilocytosis (manual Slight 02/08/19 05:55 Anisocytosis (manual) Moderate 02/08/19 05:55 Microcytosis (manual) Slight 02/08/19 05:55 Macrocytosis (manual) Slight 02/08/19 05:55 Ovalocytes Slight 02/08/19 05:55 pO2 16 mm/Hg (30-55) L 02/06/19 13:31 VBG pH 7.36 (7.32-7.43) 02/06/19 13:31 VBG pCO2 47 mmHg (40-60) 02/06/19 13:31 VBG HCO3 23.3 mmol/L 02/06/19 13:31 VBG Total CO2 28.0 mmol/L (22-28) 02/06/19 13:31 VBG O2 Sat (Calc) 21.7 % (40-65) L 02/06/19 13:31 VBG Base Excess 0.6 mmol/L (0.0-2.0) 02/06/19 13:31 VBG Potassium 3.9 mmol/L (3.6-5.2) 02/06/19 13:31 Sodium 137.0 mmol/L (132-148) 02/06/19 13:31 Chloride 105.0 mmol/L (98-107) 02/06/19 13:31 Glucose 84 mg/dL (65-105) 02/06/19 13:31 Lactate 0.8 mmol/L (0.7-2.1) 02/06/19 13:31 FiO2 21.0 % 02/06/19 13:31 Sodium 140 mmol/l (132-148) 02/10/19 06:25 Potassium 3.9 MMOL/L (3.6-5.0) 02/10/19 06:25 Chloride 108 mmol/L (98-107) H 02/10/19 06:25 Carbon Dioxide 23 mmol/L (22-30) 02/10/19 06:25 Anion Gap 13 (10-20) 02/10/19 06:25 BUN 11 mg/dl (7-17) 02/10/19 06:25 Creatinine 0.6 mg/dl (0.7-1.2) L 02/10/19 06:25 Est GFR ( Amer) > 60 02/10/19 06:25 Est GFR (Non-Af Amer) > 60 02/10/19 06:25 Random Glucose 93 mg/dL (65-105) 02/10/19 06:25 Calcium 8.1 mg/dL (8.4-10.2) L 02/10/19 06:25 Iron 72 ug/dL (37-170) 02/08/19 12:30 TIBC 269 ug/dL (250-450) 02/08/19 12:30 % Saturation 27 % (20-55) 02/08/19 12:30 Ferritin 281.0 ng/Ml (6.24-137.0) H 02/08/19 12:30 Total Bilirubin 0.1 mg/dl (0.2-1.3) L 02/10/19 06:25 AST 46 U/L (14-36) H D 02/10/19 06:25 ALT 37 U/L (9-52) 02/10/19 06:25 Alkaline Phosphatase 143 U/L (38-126) H 02/10/19 06:25 Total Protein 7.7 G/DL (6.3-8.2) 02/10/19 06:25 Albumin 3.2 g/dL (3.5-5.0) L 02/10/19 06:25 Globulin 4.5 gm/dL (2.2-3.9) H 02/10/19 06:25 Albumin/Globulin Ratio 0.7 (1.0-2.1) L 02/10/19 06:25 Triglycerides 161 mg/DL (0-149) H 02/07/19 06:00 Cholesterol 83 mg/dL (0-199) 02/07/19 06:00 LDL Cholesterol Direct 39 mg/dL (0-129) 02/07/19 06:00 HDL Cholesterol 19 MG/DL (30-70) L 02/07/19 06:00 Vitamin B12 555 pg/mL (239-931) 02/07/19 06:00 Folate 19.2 ng/mL 02/08/19 12:30 Free T4 1.15 ng/dL (0.78-2.19) 02/10/19 06:25 TSH 3rd Generation 4.23 mIU/ML (0.46-4.68) 02/10/19 06:25 Venous Blood Potassium 3.9 mmol/L (3.6-5.2) 02/06/19 13:31 Urine Color Yellow (YELLOW) 02/09/19 13:00 Urine Clarity Clear (Clear) 02/09/19 13:00 Urine pH 6.0 (5.0-8.0) 02/09/19 13:00 Ur Specific [place] 1.008 (1.003-1.030) 02/09/19 13:00 Urine Protein Negative mg/dL (NEGATIVE) 02/09/19 13:00 Urine Glucose (UA) Neg mg/dL (NEGATIVE) 02/09/19 13:00 Urine Ketones Negative mg/dL (NEGATIVE) 02/09/19 13:00 Urine Blood Moderate (NEGATIVE) 02/09/19 13:00 Urine Nitrate Negative (NEGATIVE) 02/09/19 13:00 Urine Bilirubin Negative (NEGATIVE) 02/09/19 13:00 Urine Urobilinogen 0.2-1.0 mg/dL (0.2-1.0) 02/09/19 13:00 Ur Leukocyte Esterase Neg David/uL (Negative) 02/09/19 13:00 Urine RBC (Auto) 5 /hpf (0-3) H 02/09/19 13:00 Urine Microscopic WBC 1 /hpf (0-5) 02/09/19 13:00 Ur Squamous Epith Cells 1 /hpf (0-5) 02/09/19 13:00 Absolute Lymphs (Flow) 225 Cells/mcL (850-3900) L 02/07/19 06:00 % CD4 Cells 5 Percent (30-61) L 02/07/19 06:00 Absolute CD4 Count <20 Cells/mcL (490-1740) L 02/07/19 06:00 T-Help/Suppress Ratio 0.06 Ratio (0.86-5.00) L 02/07/19 06:00 % CD8 Cells 71 Percent (12-42) H 02/07/19 06:00 Absolute CD8 Count 159 Cells/mcL (180-1170) L 02/07/19 06:00 T-Lymph Analys Comment See note 02/07/19 06:00 Influenza Typ A,B (EIA) Negative for flu a/b (NEGATIVE) 02/06/19 13:24 - Hospital Course Hospital Course: 28 y/o HIV positive F who is admitted for pneumonia/sepsis. After admission, ID was consulted, Patient is non-compliant with HAART medications and follow ups, just started on HAART medications in this visit by ID. CD4 below 50, patient improved on Levofloxacin. Patient is cleared by ID for d/c and close outpatient f/u with ID and PMD. Patient will be d/c home with Levoquin and Bactrim with home HIV and chronic medications. Patient understands and agrees with plan. Discharge Exam - Head Exam Head Exam: NORMAL INSPECTION - Eye Exam Eye Exam: EOMI, Normal appearance, PERRL Pupil Exam: NORMAL ACCOMODATION - ENT Exam ENT Exam: Mucous Membranes Moist - Respiratory Exam Respiratory Exam: Clear to PA & Lateral, NORMAL BREATHING PATTERN - Cardiovascular Exam Cardiovascular Exam: REGULAR RHYTHM, +S1, +S2 - GI/Abdominal Exam GI & Abdominal Exam: Normal Bowel Sounds, Soft. absent: Tenderness - Extremities Exam Extremities exam: normal inspection - Back Exam Back exam: absent: CVA tenderness (L), CVA tenderness (R) - Neurological Exam Neurological exam: Alert, CN II-XII Intact, Oriented x3 - Psychiatric Exam Psychiatric exam: Normal Affect - Skin Skin Exam: Normal Color Discharge Plan - Discharge Medications Prescriptions: Darunavir Ethanolate [Prezista] 600 mg PO BID #60 tab Dolutegravir Sodium [Tivicay] 50 mg PO BID #60 tab Folic Acid 1 mg PO DAILY #30 tab Levofloxacin [Levaquin] 500 mg PO DAILY #7 tablet Ritonavir [Norvir] 100 mg PO DAILY #30 tab Sulfamethoxazole/Trimethoprim [Bactrim DS 800 mg-160 mg] 1 tab PO DAILY #30 tab - Follow Up Plan Condition: FAIR Disposition: HOME/ ROUTINE Instructions: Community-Acquired Pneumonia, Adult (DC) Additional Instructions: follow up appointment at [facility] on 03/12/19 at 8:20am;please arrive 1/2 hour early to register and take your discharge papers with you. Referrals: [facility] [place] [Outside] Elder Bledsoe MD [Staff Provider] - Yvon Victoria MD [Staff Provider] -
== END 2019-02-10 12:46 | disposition home or self-care (01) | DRG 710 ==
LOC: H.ER 12:36 → H.ERHOLD 14:52 → H.MEDSURG1 16:11
PROVIDERS: ADMIT Internal Medicine; ATTEND Internal Medicine
DX: B20 Human immunodeficiency virus [HIV] disease (principal); A41.9 Sepsis, unspecified organism; G93.49 Other encephalopathy; J18.1 Lobar pneumonia, unspecified organism; Z91.19 Patient's noncompliance with other medical treatment and regimen; D63.8 Anemia in other chronic diseases classified elsewhere; E03.9 Hypothyroidism, unspecified; Z91.14 Patient's other noncompliance with medication regimen; Z88.0 Allergy status to penicillin; F17.210 Nicotine dependence, cigarettes, uncomplicated; D70.3 Neutropenia due to infection